=== PATIENT | male | born 1955 ===

== ENCOUNTER 2023-10-06 06:12 | Inpatient (IN) | payer OTHER, SELFPAY ==
[2023-09-30 10:13] LABS: Hematocrit 37.8 % (39.0-52.0); Hemoglobin 13.4 g/dL (13.0-18.0); Mean Corp Hgb Conc. 35.4 g/dL (33.0-37.0); Mean Corpuscular Hgb 31.1 pg (27.0-31.0); Mean Corpuscular Volume 87.7 fL (80.0-94.0); Mean Platelet Volume 9.4 fL (7.4-10.4); Platelet Count 303 10^3/uL (130-400); Red Blood Cell Count 4.31 10^6/uL (4.70-6.10); Red Cell Dist. Width 12.2 % (11.5-14.5); White Blood Cell Count 7.2 10^3/uL (4.8-10.8)
[2023-09-30 10:38] LABS: ALT (SGPT) 17 U/L (0-50); AST (SGOT) 22 U/L (17-59); Albumin 4.4 g/dl (3.5-5.0); Alkaline Phosphatase 66 U/L (38-126); Blood Urea Nitrogen 25 mg/dl (9-20); Calcium 10.1 mg/dl (8.4-10.2); Carbon Dioxide 28 mmol/L (22-30); Chloride 105 mmol/L (98-107); Glucose 93 mg/dl (70-99); Potassium 4.8 mmol/L (3.5-5.1); Sodium 138 mmol/L (135-145); Total Bilirubin 0.6 mg/dl (0.2-1.3); Total Protein 7.3 g/dl (6.3-8.2); eGFR > 60.00
[2023-09-30 11:53] LABS: INR 0.97; PT 12.7 Sec (11.4-14.6)
[2023-09-30 11:54] LABS: APTT 26.6 Sec (23.4-35.0)
[2023-09-30 14:17] VITALS: BMI 36.2
[2023-10-06] VITALS (15 sets, daily range): BP systolic 110–162; BP diastolic 57–91; BMI 36.2
[2023-10-06] MEDS: NORMOSOL-R 1000 IV (06:44)
[2023-10-06] MEDS: NSS 1000 IV ×2 (12:29→19:45)
[2023-10-06] MEDS: DILAUDID 0.5 MG IV ×3 (12:32→21:30)
[2023-10-06 12:38] LABS: Hematocrit 32.5 % (39.0-52.0); Hemoglobin 11.6 g/dL (13.0-18.0)
[2023-10-06] MEDS: DILAUDID 0.25 MG IV ×2 (12:45→13:17)
[2023-10-06 12:51] LABS: Blood Urea Nitrogen 23 mg/dl (9-20); Calcium 9.3 mg/dl (8.4-10.2); Carbon Dioxide 23 mmol/L (22-30); Chloride 103 mmol/L (98-107); Estimated Creatinine Clearance 125 ml/min; Glucose 146 mg/dl (70-99); Potassium 4.6 mmol/L (3.5-5.1); Sodium 137 mmol/L (135-145); eGFR > 60.00
--- NOTE | 2023-10-06 15:05 | PTCARENOTE ---
Pt received in bed from PACU s/p Juan L partial Nephrectomy. Pt AAOx3. 5 lap sites closed with Dermabond. Sites CDI. Arshad draining clear, yellow urine. IVF running at 125mL/hr per order.
[2023-10-06] MEDS: ZOFRAN 4 MG IV (16:30)
[2023-10-06] MEDS: SENOKOT 8.59999999999999964 MG PO (19:44)
[2023-10-06] MEDS: PERCOCET 5/325 2 TABLET PO (19:46)
[2023-10-07] MEDS: DILAUDID 0.5 MG IV (03:23)
[2023-10-07 03:33] VITALS: BP 150/77
--- NOTE | 2023-10-07 03:54 | PTCARENOTE ---
Patient oxygen sat -87-90 on RA, applied 2L oxygen n/c sat- 92%.
[2023-10-07 06:06] LABS: Hematocrit 32.1 % (39.0-52.0); Hemoglobin 11.2 g/dL (13.0-18.0); Mean Corp Hgb Conc. 34.9 g/dL (33.0-37.0); Mean Corpuscular Hgb 31.5 pg (27.0-31.0); Mean Corpuscular Volume 90.4 fL (80.0-94.0); Mean Platelet Volume 9.6 fL (7.4-10.4); Platelet Count 252 10^3/uL (130-400); Red Blood Cell Count 3.55 10^6/uL (4.70-6.10); Red Cell Dist. Width 12.7 % (11.5-14.5)
[2023-10-07 06:28] LABS: Blood Urea Nitrogen 23 mg/dl (9-20); Calcium 9.5 mg/dl (8.4-10.2); Carbon Dioxide 27 mmol/L (22-30); Chloride 101 mmol/L (98-107); Estimated Creatinine Clearance 91 ml/min; Glucose 113 mg/dl (70-99); Potassium 4.4 mmol/L (3.5-5.1); Sodium 136 mmol/L (135-145); eGFR > 60.00
[2023-10-07 07:30] VITALS: BP 154/85
[2023-10-07] MEDS: SENOKOT 8.59999999999999964 MG PO ×2 (08:11→19:29)
--- NOTE | 2023-10-07 09:06 | W.PN.URO.CBU ---
Today's Communication / Plan
-
Discharge planning
Assessment / Plan
-
68M s/p robotic L partial nephrectomy 10/07/23
Labs and vitals stable this AM
Regular diet
OOB/ambulate, IS
Add toradol for pain control
To reassess this afternoon for possible discharge
Diagnosis
-
Date of Service: October 07, 2023
-
Patient Diagnosis: L renal mass
Post Op Day: s/p robotic L partial nephrectomy 10/06/23
Subjective
-
Pain and nausea with vomiting overnight x3
Feeling a bit better this AM
Voided after freeman removal
Objective
-
Vital Signs
Temp Pulse Resp BP Pulse Ox
98.7 F 65 19 154/85 94
10/07/23 07:30 10/07/23 07:30 10/07/23 07:30 10/07/23 07:30 10/07/23 07:30
Intake and Output
10/06/23 10/07/23 10/08/23
06:59 06:59 06:59
Intake Total 1550 / 1550
Output Total 1350 / 1350
Balance 200 / 200
Intake:
Oral fluids 150 / 150
IV fluids (Total) 1400 / 1400
normosol 100 / 100
ns 300 / 300
Output:
Urine, Freeman 1350 / 1350
Other:
Number of immeasurable emeses? 1
Laboratory Results
10/07/23 05:04
10/07/23 05:04
Physical Exam
-
General - well developed, well nourished, no acute distress
Chest - clear bilaterally
Abdomen - soft, non-tender, no guarding, non distended
Skin - warm & dry with no rash
Neuro - AOx3, no motor deficits
Extremities - no clubbing, no cyanosis, no edema
Incision - clean, dry
Dressing - clean, dry, intact
[2023-10-07] MEDS: TORADOL 15 MG IV ×3 (10:09→21:58)
[2023-10-07] MEDS: PERCOCET 5/325 1 TABLET PO ×3 (11:16→20:41)
[2023-10-07 12:00] VITALS: BP 155/83
--- NOTE | 2023-10-07 13:30 | CM ---
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 No psych history., support
system is sister and 2 roommates. No POA or health care directives. Pharmacy is [facility] in [place], PCP is Dr. Antonio Silverman. Anticipate no needs at the time of discharge. Patient in agreement.
[2023-10-07] MEDS: ZOFRAN 4 MG IV (15:28)
[2023-10-07 16:00] VITALS: BP 172/95
--- NOTE | 2023-10-07 16:13 | W.PN.UPDATE ---
Update Note
Progress Note Update
Pain improved today
Tolerated some lunch
Has not voided much today and has elevated PVR
Will give flomax, trend bladder scans, and straight cath if needed
Continue obs overnight with expected discharge tomorrow
[2023-10-07] MEDS: FLOMAX 0.400000000000000022 MG PO (16:22)
[2023-10-07 19:00] VITALS: BP 140/83
[2023-10-07 23:05] VITALS: BP 155/83
[2023-10-08] MEDS: PERCOCET 5/325 1 TABLET PO ×4 (03:30→22:04)
[2023-10-08] MEDS: TORADOL 15 MG IV ×3 (03:30→16:45)
[2023-10-08 06:10] LABS: % Basophils 0.4 % (0-2); % Eosinophils 5.2 % (0-6); % Immature Granulocytes 0.5 % (0-0.5); % Monocytes 9.6 % (1.7-9.3); % Neutrophils 67.3 % (42.2-75.2); Absolute Eosinophils 0.4 10^3/uL (0-0.7); Absolute Lymphocytes 1.4 10^3/uL (1.2-3.4); Absolute Monocytes 0.8 10^3/uL (0.1-0.6); Absolute Neutrophils 5.6 10^3/uL (1.4-6.5); Hematocrit 30.8 % (39.0-52.0); Hemoglobin 10.8 g/dL (13.0-18.0); Mean Corp Hgb Conc. 35.1 g/dL (33.0-37.0); Mean Corpuscular Hgb 31.3 pg (27.0-31.0); Mean Corpuscular Volume 89.3 fL (80.0-94.0); Mean Platelet Volume 9.5 fL (7.4-10.4); Nucleated Red Blood Cells % 0 % (-); Platelet Count 228 10^3/uL (130-400); Red Blood Cell Count 3.45 10^6/uL (4.70-6.10); Red Cell Dist. Width 12.4 % (11.5-14.5); White Blood Cell Count 8.3 10^3/uL (4.8-10.8)
--- NOTE | 2023-10-08 06:10 | PTCARENOTE ---
Pt only able to void 100ml at this time, PVR for 687m straight cath for 600ml clear yellow urine, tolerated well
[2023-10-08 06:43] LABS: Blood Urea Nitrogen 23 mg/dl (9-20); Calcium 9.4 mg/dl (8.4-10.2); Carbon Dioxide 27 mmol/L (22-30); Chloride 103 mmol/L (98-107); Estimated Creatinine Clearance 100 ml/min; Glucose 100 mg/dl (70-99); Potassium 4.3 mmol/L (3.5-5.1); eGFR > 60.00
[2023-10-08 06:51] LABS: Sodium 135 mmol/L (135-145)
[2023-10-08 07:48] VITALS: BP 142/80
[2023-10-08] MEDS: FLOMAX 0.400000000000000022 MG PO (08:15)
[2023-10-08] MEDS: SENOKOT 8.59999999999999964 MG PO (08:15)
[2023-10-08] MEDS: MILK OF MAGNESIA 30 ML PO ×2 (10:17→15:42)
--- NOTE | 2023-10-08 11:17 | W.PN.URO.CBU ---
Today's Communication / Plan
-
prn foleyand nina freeman leg bag care if replaced
Assessment / Plan
-
68M s/p robotic L partial nephrectomy 10/07/23
feels well but no bm and styraight cath 650 cc will try laxatives an will reevaluate voiding pt aware hemay need to go home with freeman
Diagnosis
-
Date of Service: October 08, 2023
-
Patient Diagnosis:
Post Op Day:
Patient Diagnosis: L renal mass
Post Op Day: s/p robotic L partial nephrectomy 10/06/23
Subjective
-
retention uroine and constipation
Objective
-
Vital Signs
Temp Pulse Resp BP Pulse Ox
98.3 F 79 22 142/80 92
10/08/23 07:48 10/08/23 07:48 10/08/23 07:48 10/08/23 07:48 10/08/23 07:48
Intake and Output
10/07/23 10/08/23 10/09/23
06:59 06:59 06:59
Intake Total 1550 / 1550 480 / 480
Output Total 1350 / 1350 500 / 500
Balance 200 / 200 -20 / -20
Intake:
Oral fluids 150 / 150 480 / 480
IV fluids (Total) 1400 / 1400
normosol 100 / 100
ns 300 / 300
Output:
Urine, Freeman 1350 / 1350
Urine, Voided 500 / 500
Other:
Number of immeasurable emeses? 1
Laboratory Results
10/08/23 05:28
10/08/23 05:28
Review of Systems
-
Abdomen/GI: Constipated
: Difficulty Voiding
Physical Exam
-
General - well developed, well nourished, no acute distress
Chest - clear bilaterally
Abdomen - soft, non-tender, positive bowel sounds, no CVAT, no incisional pain or distention
Genitalia - normal
Rectal - normal
Skin - warm & dry with no rash
Neuro - AOx3, no motor deficits
Extremities - no clubbing, no cyanosis, no edema
Incision - clean, dry
Dressing - clean, dry, intact
Counseling
-
replace freeman if disten tion pain no void or if pvr over 500cc
[2023-10-08 15:12] VITALS: BP 139/76
[2023-10-08] MEDS: SENOKOT PO (21:28)
[2023-10-08 23:00] VITALS: BP 136/89
[2023-10-09] MEDS: PERCOCET 5/325 1 TABLET PO ×3 (03:41→13:03)
--- NOTE | 2023-10-09 06:38 | PTCARENOTE ---
Pt voided 300 yellow urine @ 0600 PVR for 289ml
[2023-10-09 07:29] VITALS: BP 119/64
[2023-10-09] MEDS: FLOMAX 0.400000000000000022 MG PO (09:05)
[2023-10-09] MEDS: SENOKOT 8.59999999999999964 MG PO (09:05)
--- NOTE | 2023-10-09 11:21 | W.DCSUMMARY ---
Discharge Summary
Discharge Data
Date of Admission: 10/06/23
Date of Discharge: 10/09/23
-
Pending Results: Yes
Additional Pending Results:
pathology reports
Hospital Course
the pt underwent a robotic partial nephrectomyHe had contipation and post iop retention but was hemodynamically stable. he is being discharged today afebrile and voiding and had bowel moveent
Discharge Plan
-
Patient Disposition: Home (Routine Discharge)
Discharge Diagnosis/Procedures: Left kidney mass
Robotic left partial nephrectomy
Condition: Good
Diet: No restrictions
Activity: No strenuous activity
Additional Activity: avoid lifting and straining for 3-4 weeks after surgery
Driving Restrictions: As prior to admission
Bathing Restrictions: OK to Shower
Wound Care: gently rinse incisions in the shower. Dont scrub or pick glue
Activity Restrictions/Additional Instructions:
The office will call to schedule follow up in 2-3 weeks
Please call with any fevers/chills, worsening or severe pain, nausea and vomiting, or other concerning symptoms
Some blood in urine can be expected during the healing period
Take over the counter medications like tylenol 500mg and ibuprofen 600mg every 6 hours as needed for pain
If these are not sufficient, you can use percocet which was sent to your pharmacy
Take a stool softener like miralax or senokot twice daily until having regular bowel movements
Referrals:
UNKNOWN - PT DOES,NOT KNOW [Family Provider] -
Prescriptions:
New
oxycodone-acetaminophen 5-325 mg Tablet
1 tab PO Q4HPRN PRN (Reason: moderate pain) Qty: 20 0RF
Continued
multivitamin Tablet
1 tab PO DAILY
ibuprofen 800 mg Tablet
400 mg PO BID
Discharge Orders:
Discharge Patient (As Directed); Ordered 10/09/23
Ordered By: Yordy Christine
--- NOTE | 2023-10-09 14:30 | PTCARENOTE ---
Patient voided 150 ml around 1350. Bladder scan PVR was [address] Christine made aware. Ok to discharge.
== END 2023-10-09 15:28 | disposition home or self-care (01) | DRG 661 ==
LOC: 2 SOUTH 06:12
PROVIDERS: ADMITTING PHYSICIAN Urology
PROC: 0TB14ZZ Excision of Left Kidney, Percutaneous Endoscopic Approach (ICD-10-PCS; 2023-10-06)
DX: N28.89 Other specified disorders of kidney and ureter (principal)
CPT/HCPCS: 88307; 36415; 80048; 80053; 85014; 85018; 85025; 85027; 85610; 85730; 86850; 86900; 86901; 86920; 93005; C1729

== ENCOUNTER → 2024-10-26 08:19 | Outpatient (REF) | payer OTHER, SELFPAY | LOC: RAD 08:19 | PROVIDERS: ATTENDING PHYSICIAN Urology; FAMILY PHYSICIAN Internal Medicine | DX: N28.1 Cyst of kidney, acquired (principal); C64.2 Malignant neoplasm of left kidney, except renal pelvis | CPT/HCPCS: 74178; Q9967 ==